=== PATIENT | male | born 1955 | race Caucasian/White ===

== ENCOUNTER → 2016-11-12 | Outpatient (CLI) | payer OTHER ==
[~2016-11-12] MED LIST: ALBU8I INH; ASAC800T PO; MAGN400 PO; TUMS500C CHEW; TYLE500T PO
[2016-11-12 08:53] LABS: AUTOMATED NEUTROPHIL # 5.2 TH/MM3 (1.8-7.7); BASOPHIL % 0.3 % (0.0-2.0); EOSINOPHIL % 0.6 % (0.0-4.0); HEMATOCRIT 46.9 % (39.0-51.0); HEMO FLAGS DIFF FINAL; LYMPHOCYTE # 1.4 TH/MM3 (1.0-4.8); MEAN CELL VOLUME 93.4 FL (80.0-100.0); MEAN CORPUSCULAR HEMOGLOBIN 30.8 PG (27.0-34.0); MEAN CORPUSCULAR HGB CONC 32.9 % (32.0-36.0); MONO % 6.4 % (0.0-8.0); NEUT % 72.7 % (16.0-70.0); PLATELET COUNT 289 TH/MM3 (150-450); RED BLOOD COUNT 5.03 MIL/MM3 (4.50-5.90); RED CELL DISTRIBUTION WIDTH 13.8 % (11.6-17.2)
[2016-11-12 13:02] LABS: ANION GAP 10 MEQ/L (5-15); AST (GOT) 16 U/L (15-37); BICARBONATE 22.4 MEQ/L (21.0-32.0); BLOOD UREA NITROGEN 12 MG/DL (7-18); CHLORIDE 109 MEQ/L (98-107); GLOMERULAR FILTRATION RATE 70 ML/MIN (>89); GLUCOSE,FASTING 99 MG/DL (74-99); POTASSIUM 4.2 MEQ/L (3.5-5.1); SODIUM (NA) 141 MEQ/L (136-145)
[2016-11-12 13:05] LABS: ALKALINE PHOSPHATASE 90 U/L (45-117); ALT (GPT) 35 U/L (12-78); HDL CHOLESTEROL 63.3 MG/DL (40.0-60.0); LDL CHOLESTEROL 71 MG/DL (0-99); TOTAL BILIRUBIN ADULT 0.4 MG/DL (0.2-1.0)
== END ==
LOC: OLAB 08:02
PROVIDERS: ATTEND Family Medicine
DX: K52.82 Eosinophilic colitis (principal); R03.0 Elevated blood-pressure reading, without diagnosis of hypertension
CPT/HCPCS: 80053; 80061; 85025

== ENCOUNTER → 2016-11-12 | Outpatient (CLI) | payer OTHER ==
--- NOTE | 2016-11-12 09:49 | RADRPT ---
EXAM DATE/TIME: 11/12/2016 00:00 [place] COMPARISON: No previous studies available for comparison. INDICATIONS : Dysphagia FLUORO TIME: 1.2 minutes IMAGE COUNT: 0 CONTRAST: Dose as prescribed by speech pathologist. MEDICAL HISTORY : GERD SURGICAL HISTORY : Anterior cervical fusion ENCOUNTER: Initial ACUITY: 7 - 11 months PAIN SCORE: 09/30 LOCATION: Esophagus FINDINGS: A modified barium swallow was performed with speech pathology. Patient was given a variety of liquids to swallow. Cervical esophagus is normal in motility and structure. There is an anterior cervical fusion plate in place in the lower cervical spine For a full detailed report, see report by the speech pathologist. CONCLUSION: Negative examination. Norman Joseph MD on November 12, 2016 at 9:47 Board Certified Radiologist. This report was verified electronically.
== END ==
LOC: HRAD 09:02
PROVIDERS: ATTEND Family Medicine
DX: R13.10 Dysphagia, unspecified (principal)
CPT/HCPCS: 74230; 92611; G8996; G8997; G8998